=== PATIENT | male | born 1945 | race Caucasian/White ===

== ENCOUNTER → 2019-03-11 | Outpatient (CLI) | payer MEDICARE, BC, SELFPAY ==
--- NOTE | 2019-03-11 15:30 | MRI_ITS ---
STUDY: MRI LUMBAR SPINE WITHOUT CONTRAST REASON FOR EXAM: Male, 73 years old. Back and left leg pain TECHNIQUE: Standardized fat and water weighted pulse sequences were obtained in the sagittal and axial planes. COMPARISON: None FINDINGS: T12-L1: Normal endplates. Normal disc height, desiccation and minimal annular bulge.. Normal bilateral facet joints. Normal central canal and bilateral lateral recesses. Normal bilateral intervertebral neural foramina. Normal lumbar lordosis. There is no substantial scoliosis. Normal conus medullaris that terminates at T12-L1 L1-2: Degenerative endplate changes and endplate spurring narrowed disc space with desiccation of the disc and minor annular bulge.. Normal bilateral facet joints. Normal central canal and bilateral lateral recesses. Normal bilateral intervertebral neural foramina. L2-3: Degenerative endplate changes with narrowing of the disc space and minor annular bulge with bilateral foraminal disc protrusions larger on the right and mild facet arthropathy.. Normal central canal and bilateral lateral recesses. Bilateral neuroforaminal stenosis greater on the right L3-4: Normal endplates. Normal disc height, desiccation and minor bulging of the annulus with bilateral foraminal disc protrusions.. Bilateral facet arthropathy and thickening of ligamenta flava slightly greater on the right. Normal central canal. Moderate bilateral recess encroachment and moderate bilateral neuroforaminal stenosis L4-5: Narrowed disc space and desiccation of the disc and minor annular bulge with small left posterolateral disc protrusion. Bilateral facet arthropathy and thickening of ligamenta flava.. Normal central canal. Moderate bilateral recess and neuroforaminal stenosis exaggerated by shortened pedicles L5-S1: Normal endplates. Normal disc height, desiccation and mild annular bulge.. Facet arthropathy and thickening of ligamenta flava.. Normal central canal. Moderate bilateral recess and neural foraminal stenosis Normal visualized sacral ala. Normal visualized paraspinous soft tissue structures. Left renal cyst is noted. MRI/Spine Lumbar (Routine) IMPRESSION: Moderate spondylosis with disc degeneration and multilevel spinal stenosis secondary to disc disease and bony hypertrophy Findings as above Electronically Signed: Gary Aj MD at 17:12 EDT , Service support ,
== END | disposition home or self-care (01) ==
LOC: MRI 15:27
PROVIDERS: Family Provider Family Medicine; PCP Family Medicine; Referring Provider Anesthesiology; Visit Provider Anesthesiology
DX: M54.16 Radiculopathy, lumbar region (principal); M54.42 Lumbago with sciatica, left side
CPT/HCPCS: 72148